=== PATIENT | female | born 2000 | race Hispanic/Latino ===

== ENCOUNTER 2024-12-12 20:09 | Observation (INO) | payer SELFPAY ==
[2024-12-12 21:35] VITALS: BMI 17.7
[2024-12-12] MEDS ORDERED: Ondansetron PF 4 MG/2 ML Vial IVP PRN (21:40)
[2024-12-12] MEDS ORDERED: Acetaminophen 325 MG TAB PO PRN (23:24)
[2024-12-13] MEDS: Ketorolac Tromethamine 30 MG (1 mL) VIAL IVP PRN (02:55)
[2024-12-13 06:59] LABS: #Basophils Less than 0.03 10x3/uL (0.0-0.2); #Eosinophils Less than 0.03 10x3/uL (0.0-0.7); #Monocytes 0.72 10x3/uL (0.11-0.59); #Neutrophils 6.05 10x3/uL (1.40-6.50); %Basophils 0.2 % (0.0-1.0); %Eosinophils 0.1 % (0.0-10.0); %Lymphocytes 29.4 % (21.0-51.0); %Monocytes 7.4 % (0.0-10.0); %Neutrophils 62.6 % (42.0-75.0); Hematocrit 36.3 % (36.0-47.0); Hemoglobin 12.2 g/dL (12.0-16.0); Mean Corpuscular Hemoglobin 31.3 pg (27.0-31.0); Mean Corpuscular Volume 93.1 fL (78.0-98.0); Platelet Count 176 10x3/uL (130-400); Red Blood Cell (RBC) Count 3.90 mill/uL (4.20-5.40); White Blood Cell (WBC) Count 9.68 10x3/uL (4.8-10.8)
[2024-12-13 07:19] LABS: ALT (SGPT) 29 U/L (Less than 34); AST (SGOT) 23 U/L (11-34); Albumin 4.3 g/dL (3.1-4.5); Alkaline Phosphatase 37 U/L (40-110); Anion Gap 12 mmol/L (10-20); BUN (Urea Nitrogen) 7 mg/dL (7.0-18.7); Bilirubin, Total 0.8 mg/dL (0.3-1.2); Calc. Creatinine Clearance 102 mL/min (70-130); Calcium 8.9 mg/dL (7.8-10.44); Carbon Dioxide 25 mmol/L (22-29); Chloride 103 mmol/L (98-107); Globulin 2.2 g/dL (2.4-3.5); Glucose 107 mg/dL (70-105); Potassium 3.6 mmol/L (3.5-5.1); Sodium 136 mmol/L (136-145)
[2024-12-13] MEDS: Famotidine 20 MG TAB PO SCH (09:41)
[2024-12-13 12:34] VITALS: BP 151/95; TEMP 98.3
== END 2024-12-13 14:46 | disposition home or self-care (01) ==
LOC: OBS 21:09
PROVIDERS: ADMIT Internal Medicine; ATTEND Student in an Organized Health Care Education/Training Program
DX: R11.16 Cannabis hyperemesis syndrome (principal); F12.99 Cannabis use, unspecified with unspecified cannabis-induced disorder; R10.13 Epigastric pain; Z88.1 Allergy status to other antibiotic agents
CPT/HCPCS: 36415; 76705; 80053; 85025; 96374; 96375; 96376; G0378; J1885; J2270; J2550; Q0162

== ENCOUNTER 2024-12-15 18:16 | Observation (INO) | payer SELFPAY ==
[2024-12-15 21:54] VITALS: BMI 17.4
[2024-12-15] MEDS ORDERED: Ondansetron PF 4 MG/2 ML Vial IVP PRN (22:53)
[2024-12-15] MEDS ORDERED: Acetaminophen 325 MG TAB PO PRN (22:53)
[2024-12-16] MEDS ORDERED: Metoclopramide HCl 10 MG (2 mL) VIAL IVP PRN (00:13)
[2024-12-16] MEDS ORDERED: HYDROcodone/Acetaminophen 5/325 mg Tablet PO PRN (06:59)
[2024-12-16 08:12] LABS: #Basophils 0.04 10x3/uL (0.0-0.2); #Eosinophils 0.09 10x3/uL (0.0-0.7); #Monocytes 0.51 10x3/uL (0.11-0.59); #Neutrophils 2.36 10x3/uL (1.40-6.50); %Basophils 0.7 % (0.0-1.0); %Eosinophils 1.6 % (0.0-10.0); %Lymphocytes 46.3 % (21.0-51.0); %Monocytes 9.1 % (0.0-10.0); %Neutrophils 42.1 % (42.0-75.0); Hematocrit 34.5 % (36.0-47.0); Hemoglobin 11.9 g/dL (12.0-16.0); Mean Corpuscular Hemoglobin 31.4 pg (27.0-31.0); Mean Corpuscular Volume 91.0 fL (78.0-98.0); Platelet Count 184 10x3/uL (130-400); Red Blood Cell (RBC) Count 3.79 mill/uL (4.20-5.40); White Blood Cell (WBC) Count 5.61 10x3/uL (4.8-10.8)
[2024-12-16 08:31] LABS: ALT (SGPT) 17 U/L (Less than 34); AST (SGOT) 23 U/L (11-34); Albumin 4.1 g/dL (3.1-4.5); Alkaline Phosphatase 34 U/L (40-110); Anion Gap 13 mmol/L (10-20); BUN (Urea Nitrogen) 11 mg/dL (7.0-18.7); Bilirubin, Total 0.7 mg/dL (0.3-1.2); Calc. Creatinine Clearance 90 mL/min (70-130); Calcium 8.9 mg/dL (7.8-10.44); Carbon Dioxide 23 mmol/L (22-29); Chloride 102 mmol/L (98-107); Globulin 2.0 g/dL (2.4-3.5); Glucose 65 mg/dL (70-105); Magnesium 1.7 mg/dL (1.6-2.6); Potassium 3.2 mmol/L (3.5-5.1); Sodium 135 mmol/L (136-145)
[2024-12-16] MEDS: Pantoprazole 40 MG DR.TAB PO SCH (08:44)
[2024-12-16] MEDS: FLU (Fluarix Triv) 25-26 (6MOS UP)/PF 45 MCG/0.5 ML Syringe IM ONE (08:45)
[2024-12-16] MEDS: Lactulose 20 GM (30 mL) UDCUP PO SCH (12:08)
[2024-12-16 16:48] VITALS: BP 118/71; TEMP 98.2
[2024-12-16] MEDS ORDERED: Lactulose 20 GM (30 mL) UDCUP PO SCH (21:00)
[2024-12-16] MEDS ORDERED: Magnesium Oxide 400 MG TAB PO SCH (21:00)
[2024-12-17] MEDS ORDERED: Potassium Bicarbonate/Cit Ac 20 MEQ TAB PO SCH (08:00)
== END 2024-12-16 17:45 | disposition home or self-care (01) ==
LOC: T4-A 21:20
PROVIDERS: ADMIT Internal Medicine; ATTEND Student in an Organized Health Care Education/Training Program
DX: E87.6 Hypokalemia (principal); R63.0 Anorexia; F12.10 Cannabis abuse, uncomplicated; Z68.1 Body mass index [BMI] 19.9 or less, adult; Z88.1 Allergy status to other antibiotic agents
CPT/HCPCS: 36415; 74018; 80053; 83735; 85025; 90656